=== PATIENT | female | born 1965 | race Caucasian/White ===

== ENCOUNTER 2020-04-06 08:27 | Emergency (ER) | payer OTHER, SELFPAY ==
[2020-04-06 08:34] VITALS: BP 126/97; PULSE 93; RESP 18; TEMP 37.2; O2SAT 98
--- NOTE | 2020-04-06 08:56 | ED.DENTAL ---
HPI - Dental/Oral General Chief complaint: Dental/Oral Stated complaint: cheek swollen/tooth pain Time Seen by Provider: 04/06/20 08:40 Source: patient and RN notes reviewed Mode of arrival: ambulatory Limitations: no limitations History of Present Illness HPI Narrative: Patient presents today complaining of right upper dental pain x2 days, right upper jaw pain and swelling since yesterday. She has been taking Advil and her 's gabapentin for pain. She currently rates her pain 06/24. Medications are not providing any relief. Denies fever, shortness of breath, or difficulty swallowing.She has not seen a dentist. MD Complaint: tooth pain Related Data Allergies Allergy/AdvReac Type Severity Reaction Status Date / Time No Known Allergies Allergy Verified 04/06/20 08:38 Review of Systems Review of Systems: Narrative: CONSTITUTIONAL: Denies body aches, fever, chills, or sweats. EYES: Denies visual changes, redness, or discharge. ENT: Denies rhinorrhea, congestion, sore throat, or otalgia. +Dental pain CARDIOVASCULAR: Denies chest pain, palpitations, or edema. RESPIRATORY: Denies cough or dyspnea. GASTROINTESTINAL: Denies abdominal pain, nausea, vomiting, or diarrhea. GENITOURINARY: Denies dysuria or hematuria. SKIN: Denies rash, itching, or wounds. MUSCULOSKELETAL: Denies back pain, joint pain, or myalgia. NEUROLOGIC: Denies headache, numbness, tingling, or weakness. PSYCH: Denies depression or anxiety. PMFSH Comments At time of signature, I have reviewed and agree with nursing past medical, surgical, social and family history unless otherwise noted. Please see nursing chart for further information. There is no relevant family history pertinent to the presenting complaint Exam Narrative: Exam Narrative: GENERAL: Well-appearing, well-nourished, and in no acute distress. HEAD: Normocephalic, atraumatic. EYES: EOMI. No redness or drainage. Conjunctivae normal. ENT: Mucous membranes pink and moist. Nares clear. No rhinorrhea. TMs normal bilaterally. Throat normal. Uvula midline. Gross decay. Moderate swelling of right upper jawline. Tenderness over teeth 2-4 that are brown/black in color. NECK: Normal AROM. Supple. No lymphadenopathy. CHEST: No respiratory distress. Clear to auscultation. HEART: Regular rate and rhythm. No murmur appreciated. Normal peripheral pulses. EXTREMITIES: Normal range of motion. No edema. SKIN: Warm, dry, no rash. Capillary refill normal. Normal skin turgor. NEURO: No focal deficits. Alert and oriented x3. Gait steady. PSYCH: Normal affect. No signs of depression or anxiety. Course Vital Signs Vital signs: Vital Signs Temperature 98.9 F 04/06/20 08:34 Pulse Rate 93 04/06/20 08:34 Respiratory Rate 18 04/06/20 08:34 Blood Pressure 126/97 H 04/06/20 08:34 Pulse Oximetry 98 04/06/20 08:34 Temperature 98.9 F 04/06/20 08:34 Pulse Rate 93 04/06/20 08:34 Respiratory Rate 18 04/06/20 08:34 Blood Pressure 126/97 H 04/06/20 08:34 Pulse Oximetry 98 04/06/20 08:34 Reviewed. Pt has been instructed to follow up with her PCP regarding her elevated blood pressure today. MDM - Dental/Oral Differential Diagnosis Differential diagnosis: Likely gingival abscess, dental caries, toothache, dental abscess and fracture of tooth Critical Care Time Critical Care Time Critical Care Time: No Discharge Plan Discharge Clinical Impression: Dental abscess Patient Disposition: Home, Self-Care Condition: Stable Instructions: Antibiotic Form, Dental Abscess (ED) Additional Instructions: Take the Augmentin and prednisone as directed. Take ibuprofen and Tylenol at home for pain. Follow-up with a dentist as soon as possible for further evaluation, as dental care cannot be provided at [facility]. As discussed, please go to the ER immediately if you develop fever, shortness of breath, or difficulty swallowing. Your blood pressure was elevated above 120/80 toda
== END 2020-04-06 09:06 | disposition home or self-care (01) ==
PROVIDERS: Emergency Provider Nurse Practitioner; PCP Physician Assistant
DX: K04.7 Periapical abscess without sinus (principal)
CPT/HCPCS: 99203; G0463